=== PATIENT | male | born 1975 | race Caucasian/White ===

== ENCOUNTER 2020-07-10 15:45 | Outpatient (RCR) | payer BC | END 2020-09-27 | disposition still patient (30) | LOC: WSC | DX: M25.561 Pain in right knee (principal) ==

== ENCOUNTER 2020-10-15 13:44 | Emergency (ER) | payer SELFPAY ==
[~2020-10-15] VITALS: Ht 190.5 cm; Wt 144.5 kg
[2020-10-15 13:48] VITALS: TEMP 98
[2020-10-15 14:01] LABS: BASO % 0.3 % (0.0-2.0); EOS # 0.1 (0.0-0.7); EOS % 0.7 % (0-4.0); HEMATOCRIT 49.4 % (42.0-52.0); HEMOGLOBIN 15.8 g/dl (13.5-18.0); LYMPH # 1.9 (1.2-3.4); LYMPH % 17.9 % (20.0-51.0); MEAN CELL VOLUME 88 fl (80.0-100.0); MEAN CORPUSCULAR HEMOGLOBIN 28 pg (27.0-31.0); MEAN CORPUSCULAR HGB CONC 32 g/dl (33.0-37.0); MEAN PLATELET VOLUME 9.6 fl (7.4-10.4); MONO # 0.6 (0.1-0.6); MONO % 5.8 % (1.7-9.3); PLATELET COUNT 320 K/mm3 (130-400); RED BLOOD COUNT 5.61 M/mm3 (4.20-5.60); REDCELL DISTRIBUTION WIDTH-CV 14.7 % (11.5-14.5)
[2020-10-15 14:11] LABS: ALANINE AMINOTRANSFERASE 27 U/L (4-49); ALBUMIN 4.2 gm/dL (3.5-5.0); ALKALINE PHOSPHATASE 100 U/L (50-136); ANION GAP 6 mmol/L (7-16); AST,SGOT 32 U/L (15-37); BILIRUBIN,TOTAL 0.6 mg/dL (0.0-1.0); BLOOD UREA NITROGEN 12 mg/dL (9-20); CALCIUM 9.5 mg/dL (8.4-10.2); CARBON DIOXIDE 28 mmol/L (22-30); CHLORIDE 107 mmol/L (98-107); CREATININE, serum 0.83 (0.66-1.25); GLUCOSE 88 mg/dL (74-106); LIPASE 78 U/L (23-300); POTASSIUM 4.2 mmol/L (3.4-5.0); SODIUM 141 mmol/L (137-145); TOTAL PROTEIN 7.1 gm/dL (6.4-8.2)
[2020-10-15 14:25] LABS: TROPONIN-I < 0.012 ng/mL (0.000-0.035)
[2020-10-15 17:35] VITALS: BP 129/90; PULSE 78
== END 2020-10-15 17:35 | disposition home or self-care (01) ==
LOC: COL.ER 13:44
PROVIDERS: Physician Assistant
DX: R07.89 Other chest pain (principal)
CPT/HCPCS: J2270; J2405; J7030

== ENCOUNTER 2020-11-14 10:06 | Observation (INO) | payer SELFPAY ==
[~2020-11-14] VITALS: Ht 193 cm; Wt 131.8 kg
[2020-11-14] MEDS ORDERED: KLONOPIN2 MG PO (10:48)
[2020-11-14] MEDS ORDERED: PROZAC60 MG (10:48)
[2020-11-14] MEDS ORDERED: VOLTAREN 50MG T50 MG PO (10:49)
[2020-11-14] MEDS ORDERED: SOMA 350MG350 MG/TAB PO (10:49)
[2020-11-14] MEDS ORDERED: ULTRAM ER100 MG PO (10:49)
[2020-11-14] MEDS ORDERED: ADDERALL10 MG PO (10:50)
[2020-11-14] MEDS ORDERED: ADIPEX-P37.5 MG PO (10:50)
[2020-11-14 11:03] LABS: BASO # 0.1 (0.0-0.2); BASO % 0.4 % (0.0-2.0); EOS # 0.1 (0.0-0.7); EOS % 0.7 % (0-4.0); GRAN # 9.5 (1.4-6.5); HEMATOCRIT 51.1 % (42.0-52.0); HEMOGLOBIN 16.9 g/dl (13.5-18.0); LYMPH # 1.8 (1.2-3.4); LYMPH % 14.5 % (20.0-51.0); MEAN CELL VOLUME 86 fl (80.0-100.0); MEAN CORPUSCULAR HEMOGLOBIN 28 pg (27.0-31.0); MEAN CORPUSCULAR HGB CONC 33 g/dl (33.0-37.0); MEAN PLATELET VOLUME 9.7 fl (7.4-10.4); MONO # 0.7 (0.1-0.6); MONO % 5.7 % (1.7-9.3); PLATELET COUNT 359 K/mm3 (130-400); RED BLOOD COUNT 5.97 M/mm3 (4.20-5.60); REDCELL DISTRIBUTION WIDTH-CV 14.8 % (11.5-14.5)
[2020-11-14 12:55] LABS: ALBUMIN 3.6 gm/dL (3.5-5.0); BILIRUBIN,TOTAL 0.5 mg/dL (0.0-1.0); CALCIUM 9.1 mg/dL (8.4-10.2); CREATININE, serum 0.73 (0.66-1.25); TOTAL PROTEIN 6.3 gm/dL (6.4-8.2)
[2020-11-14 16:53] VITALS: BP 131/88; PULSE 79
[2020-11-14 19:06] LABS: INR 1.1 (0.8-3.0); PROTHROMBIN TIME 12.2 SECONDS (9.7-12.8)
[2020-11-14 19:51] VITALS: BP 127/90; PULSE 88; TEMP 98.6
--- NOTE | 2020-11-14 23:31 | NUR ---
ALERT AND OX4. RATING PAIN 8/10 LOWER ABD. DENIES ANY BLOODY STOOL OR VOMITING SINCE LAST NIGHT. NAUSEA AND PAIN TX W PRN MEDS. PLAN OF CARE DISCUSSED WILL BE NPO AT [address] BRAND IN AM. IV FLUIDS INFUSING. CALL LIGHT WI REACH.
[2020-11-15] VITALS (7 sets, daily range): BP systolic 105–122; BP diastolic 6–78; PULSE 63–82; TEMP 97.3–98.2
[2020-11-15 06:45] LABS: BASO # 0.1 (0.0-0.2); BASO % 0.4 % (0.0-2.0); EOS # 0.1 (0.0-0.7); EOS % 1.2 % (0-4.0); GRAN # 8.4 (1.4-6.5); GRAN % 73.2 % (42.2-75.2); HEMATOCRIT 46.7 % (42.0-52.0); HEMOGLOBIN 15.1 g/dl (13.5-18.0); LYMPH # 2.1 (1.2-3.4); LYMPH % 18.3 % (20.0-51.0); MEAN CELL VOLUME 87 fl (80.0-100.0); MEAN CORPUSCULAR HEMOGLOBIN 28 pg (27.0-31.0); MEAN CORPUSCULAR HGB CONC 32 g/dl (33.0-37.0); MEAN PLATELET VOLUME 10.1 fl (7.4-10.4); MONO # 0.7 (0.1-0.6); MONO % 6.1 % (1.7-9.3); PLATELET COUNT 284 K/mm3 (130-400); RED BLOOD COUNT 5.35 M/mm3 (4.20-5.60); REDCELL DISTRIBUTION WIDTH-CV 14.6 % (11.5-14.5)
[2020-11-15 07:04] LABS: ALBUMIN 3.3 gm/dL (3.5-5.0); BILIRUBIN,TOTAL 0.5 mg/dL (0.0-1.0); CALCIUM 8.8 mg/dL (8.4-10.2); CREATININE, serum 0.79 (0.66-1.25); POTASSIUM 4.2 mmol/L (3.4-5.0); TOTAL PROTEIN 5.7 gm/dL (6.4-8.2)
[2020-11-15] MEDS ORDERED: ZOFRAN 4MG T4 MG/TAB PO (08:26)
[2020-11-15] MEDS ORDERED: PROTONIX 40MG T40 MG PO (08:26)
--- NOTE | 2020-11-15 10:35 | NUR ---
DISCHARGE INSTRUCTIONS DISCUSSED WITH PT. PT COMPLETED POWER OF EDITING COMPUTER PUBLISHER PAPERWORK WITH CASE MANAGEMENT. NEW PRESCRIPTIONS DISCUSSED WITH PT. IV AND TELE DC'D. ALL QUESTIONS ANSWERED. PT WHEELED OUT TO ER ENTERENCE AND MET BY FAMILY.
--- NOTE | 2020-11-15 10:42 | NUR ---
Initial visit; Patient thanked Batch Or Continuous Still Operator for looking in on him, offering God's blessings and keeping him in her prayers.
--- NOTE | 2020-11-15 15:07 | NUR ---
Train Brake Operator attended clinical rounds with the team. The patient is independent and will be discharged home today, 11/15. The patient was interested in completing DPOA-HC. Form provided and patient completed. The patient designated his life partner, Patrizia #[phone]. Copy placed in chart and original plus copies provided to the patient. No other needs at this time.
== END 2020-11-15 10:35 | disposition home or self-care (01) ==
LOC: COL.ER 10:06 → MEDICAL 17:20
PROVIDERS: Emergency Medicine; Internal Medicine Gastroenterology; Nurse Practitioner Primary Care; ADMIT Internal Medicine
DX: K31.7 Polyp of stomach and duodenum (principal); K29.50 Unspecified chronic gastritis without bleeding; F41.9 Anxiety disorder, unspecified; F32.9 Major depressive disorder, single episode, unspecified; G89.29 Other chronic pain; Z79.899 Other long term (current) drug therapy; M19.90 Unspecified osteoarthritis, unspecified site; E66.9 Obesity, unspecified; K26.7 Chronic duodenal ulcer without hemorrhage or perforation
CPT/HCPCS: C9113; G0378; J2270; J2405; J2704; J7030; Q9967

== ENCOUNTER 2020-11-17 17:54 | Emergency (ER) | payer SELFPAY ==
[~2020-11-17] VITALS: Ht 190.5 cm; Wt 131.8 kg
[~2020-11-17 17:54] MED LIST: ADDERALL10 MG PO; ADIPEX-P37.5 MG PO; KLONOPIN2 MG PO; PROTONIX 40MG T40 MG PO; PROZAC60 MG; SOMA 350MG350 MG/TAB PO; ULTRAM ER100 MG PO; VOLTAREN 50MG T50 MG PO; ZOFRAN 4MG T4 MG/TAB PO
[2020-11-17 18:00] VITALS: TEMP 98
[2020-11-17 18:51] LABS: BASO % 0.3 % (0.0-2.0); EOS # 0.1 (0.0-0.7); EOS % 0.8 % (0-4.0); GRAN # 7.9 (1.4-6.5); GRAN % 78.3 % (42.2-75.2); HEMATOCRIT 45.1 % (42.0-52.0); HEMOGLOBIN 14.9 g/dl (13.5-18.0); LYMPH # 1.4 (1.2-3.4); LYMPH % 14.4 % (20.0-51.0); MEAN CELL VOLUME 87 fl (80.0-100.0); MEAN CORPUSCULAR HEMOGLOBIN 29 pg (27.0-31.0); MEAN CORPUSCULAR HGB CONC 33 g/dl (33.0-37.0); MEAN PLATELET VOLUME 9.7 fl (7.4-10.4); MONO # 0.6 (0.1-0.6); MONO % 5.6 % (1.7-9.3); PLATELET COUNT 331 K/mm3 (130-400); REDCELL DISTRIBUTION WIDTH-CV 14.5 % (11.5-14.5)
[2020-11-17 19:02] LABS: ALANINE AMINOTRANSFERASE 48 U/L (4-49); ALBUMIN 3.5 gm/dL (3.5-5.0); ALKALINE PHOSPHATASE 83 U/L (50-136); ANION GAP 6 mmol/L (7-16); AST,SGOT 35 U/L (15-37); BILIRUBIN,TOTAL 0.2 mg/dL (0.0-1.0); BLOOD UREA NITROGEN 10 mg/dL (9-20); CALCIUM 9.1 mg/dL (8.4-10.2); CARBON DIOXIDE 26 mmol/L (22-30); CHLORIDE 107 mmol/L (98-107); CREATININE, serum 0.66 (0.66-1.25); GLUCOSE 95 mg/dL (74-106); POTASSIUM 3.6 mmol/L (3.4-5.0); SODIUM 140 mmol/L (137-145); TOTAL PROTEIN 6.2 gm/dL (6.4-8.2)
[2020-11-17 19:15] LABS: TROPONIN-I < 0.012 ng/mL (0.000-0.035)
[2020-11-17 19:24] LABS: LIPASE 71 U/L (23-300)
[2020-11-17 20:26] VITALS: BP 126/85; PULSE 81
== END 2020-11-17 20:35 | disposition home or self-care (01) ==
LOC: COL.ER 17:54
PROVIDERS: Emergency Medicine
DX: R07.89 Other chest pain (principal); K92.2 Gastrointestinal hemorrhage, unspecified; F41.9 Anxiety disorder, unspecified; F32.9 Major depressive disorder, single episode, unspecified; Z79.899 Other long term (current) drug therapy
CPT/HCPCS: J2405; J7120

== ENCOUNTER 2021-01-18 16:28 | Emergency (ER) | payer SELFPAY ==
[~2021-01-18] VITALS: Ht 190.5 cm; Wt 126.4 kg
[2021-01-18 16:40] VITALS: TEMP 97.9
[2021-01-18 17:30] LABS: BASO % 0.3 % (0.0-2.0); EOS # 0.1 (0.0-0.7); EOS % 1.1 % (0-4.0); GRAN # 6.4 (1.4-6.5); GRAN % 66.5 % (42.2-75.2); HEMATOCRIT 43.4 % (42.0-52.0); HEMOGLOBIN 14.5 g/dl (13.5-18.0); LYMPH # 2.4 (1.2-3.4); LYMPH % 25.2 % (20.0-51.0); MEAN CELL VOLUME 88 fl (80.0-100.0); MEAN CORPUSCULAR HEMOGLOBIN 29 pg (27.0-31.0); MEAN CORPUSCULAR HGB CONC 33 g/dl (33.0-37.0); MEAN PLATELET VOLUME 9.2 fl (7.4-10.4); MONO # 0.6 (0.1-0.6); MONO % 5.8 % (1.7-9.3); PLATELET COUNT 322 K/mm3 (130-400); RED BLOOD COUNT 4.95 M/mm3 (4.20-5.60); REDCELL DISTRIBUTION WIDTH-CV 14.8 % (11.5-14.5)
[2021-01-18 17:43] LABS: ALANINE AMINOTRANSFERASE 22 U/L (4-49); ALBUMIN 3.7 gm/dL (3.5-5.0); ALKALINE PHOSPHATASE 74 U/L (50-136); ANION GAP 8 mmol/L (7-16); AST,SGOT 22 U/L (15-37); BILIRUBIN,TOTAL < 0.1 mg/dL (0.0-1.0); BLOOD UREA NITROGEN 19 mg/dL (9-20); CALCIUM 8.6 mg/dL (8.4-10.2); CARBON DIOXIDE 27 mmol/L (22-30); CHLORIDE 104 mmol/L (98-107); CREATININE, serum 0.85 (0.66-1.25); GLUCOSE 104 mg/dL (74-106); POTASSIUM 4.3 mmol/L (3.4-5.0); SODIUM 138 mmol/L (137-145); TOTAL PROTEIN 6.6 gm/dL (6.4-8.2)
[2021-01-18 18:01] LABS: TROPONIN-I < 0.012 ng/mL (0.000-0.035)
[2021-01-18 19:10] VITALS: BP 118/64; PULSE 96
== END 2021-01-18 19:10 | disposition home or self-care (01) ==
LOC: COL.ER 16:28
PROVIDERS: Family Medicine
DX: R07.89 Other chest pain (principal); K92.2 Gastrointestinal hemorrhage, unspecified; R55 Syncope and collapse; R00.0 Tachycardia, unspecified; G89.29 Other chronic pain; M54.9 Dorsalgia, unspecified; F32.9 Major depressive disorder, single episode, unspecified; F41.9 Anxiety disorder, unspecified; Z79.899 Other long term (current) drug therapy; Z90.49 Acquired absence of other specified parts of digestive tract

== ENCOUNTER 2021-06-14 15:53 | Emergency (ER) | payer SELFPAY ==
[~2021-06-14] VITALS: Ht 190.5 cm; Wt 138.2 kg
[2021-06-14 16:07] VITALS: TEMP 98.6
[2021-06-14 16:53] LABS: BASO # 0.1 K/mm3 (0.0-0.2); BASO % 0.7 % (0.0-2.0); EOS # 0.2 K/mm3 (0.0-0.7); EOS % 2.2 % (0.0-4.0); GRAN # 4.7 K/mm3 (1.4-6.5); HEMATOCRIT 43.6 % (42.0-52.0); HEMOGLOBIN 14.6 g/dl (13.5-18.0); LYMPH # 2.2 K/mm3 (1.2-3.4); LYMPH % 28.9 % (20.0-51.0); MEAN CELL VOLUME 86 fl (80.0-100.0); MEAN CORPUSCULAR HEMOGLOBIN 29 pg (27-31); MEAN CORPUSCULAR HGB CONC 34 g/dl (33.0-37.0); MEAN PLATELET VOLUME 9.2 fl (7.4-10.4); MONO # 0.4 K/mm3 (0.1-0.6); MONO % 5.7 % (1.7-9.3); PLATELET COUNT 302 K/mm3 (130-400); RED BLOOD COUNT 5.09 M/mm3 (4.20-5.60); REDCELL DISTRIBUTION WIDTH-CV 14.3 % (11.5-14.5)
[2021-06-14 17:29] LABS: ALANINE AMINOTRANSFERASE 10 U/L (0-55); ALBUMIN 3.5 gm/dL (3.5-5.0); ALKALINE PHOSPHATASE 68 U/L (40-150); ANION GAP 9 mmol/L (7-16); AST,SGOT 12 U/L (5-34); BILIRUBIN,TOTAL 0.2 mg/dL (0.2-1.2); BLOOD UREA NITROGEN 13 mg/dL (9-21); C-REACTIVE PROTEIN 0.23 mg/dL (0.00-0.50); CALCIUM 8.7 mg/dL (8.4-10.2); CARBON DIOXIDE 23 mmol/L (22-29); CHLORIDE 109 mmol/L (98-107); CREATININE, serum 0.74 mg/dL (0.72-1.25); GLUCOSE 126 mg/dL (70-99); SODIUM 141 mmol/L (136-145); TOTAL PROTEIN 6.4 gm/dL (6.2-8.1)
[2021-06-14 17:37] LABS: TROPONIN-I < 0.010 ng/mL (0.00-0.033)
[2021-06-14 18:26] VITALS: BP 138/78; PULSE 76
== END 2021-06-14 18:26 | disposition home or self-care (01) ==
LOC: COL.ER 15:53
PROVIDERS: Emergency Medicine
DX: B34.9 Viral infection, unspecified (principal); R07.89 Other chest pain; M41.9 Scoliosis, unspecified; Z20.822 Contact with and (suspected) exposure to COVID-19
CPT/HCPCS: J7030